=== PATIENT | female | born 1955 | race Caucasian/White ===

== ENCOUNTER 2024-06-28 14:21 | Outpatient (CLI) | payer OTHER | END 2024-06-28 14:22 | disposition home or self-care (01) | LOC: MRI 14:21 | PROVIDERS: ATTEND Registered Nurse | DX: M25.511 Pain in right shoulder (principal); M79.601 Pain in right arm; M75.101 Unspecified rotator cuff tear or rupture of right shoulder, not specified as traumatic; S46.111A Strain of muscle, fascia and tendon of long head of biceps, right arm, initial encounter; M19.011 Primary osteoarthritis, right shoulder; Z91.81 History of falling ==

== ENCOUNTER 2024-07-17 10:52 | Outpatient (CLI) | payer OTHER ==
[2024-07-17 12:20] LABS: #Basophils 0.11 10x3/uL (0.0-0.2); %Basophils 1.5 % (0.0-1.0); %Eosinophils 2.4 % (0.0-10.0); %Lymphocytes 37.6 % (21.0-51.0); %Monocytes 10.8 % (0.0-10.0); %Neutrophils 47.6 % (42.0-75.0); Hematocrit 38.8 % (36.0-47.0); Hemoglobin 13.1 g/dL (12.0-16.0); Mean Corpuscular HGB CONC 33.8 g/dL (32.0-36.0); Mean Corpuscular Hemoglobin 28.2 pg (27.0-31.0); Mean Corpuscular Volume 83.4 fL (78.0-98.0); Mean Platelet Volume 9.4 fL (7.4-10.4); Platelet Count 284 10x3/uL (130-400); RBC Distribution Width 14.1 % (11.5-14.5); Red Blood Cell (RBC) Count 4.65 mill/uL (4.20-5.40)
[2024-07-17 12:45] LABS: Anion Gap 11 mmol/L (10-20); BUN (Urea Nitrogen) 8 mg/dL (9.8-20.1); Calc. Creatinine Clearance 0 mL/min (70-130); Calcium 9.5 mg/dL (7.8-10.44); Carbon Dioxide 28 mmol/L (23-31); Chloride 102 mmol/L (98-107); Estimated GFR 94; Glucose 104 mg/dL (80-115); Potassium 3.6 mmol/L (3.5-5.1); Sodium 137 mmol/L (136-145)
== END 2024-07-17 10:53 | disposition home or self-care (01) ==
LOC: LABBT 10:52
PROVIDERS: ATTEND Student in an Organized Health Care Education/Training Program
DX: Z01.818 Encounter for other preprocedural examination (principal); M75.101 Unspecified rotator cuff tear or rupture of right shoulder, not specified as traumatic
CPT/HCPCS: 80048; 85025; 93005; 93010

== ENCOUNTER 2024-07-20 07:45 | Day surgery (SDC) | payer OTHER ==
[2024-07-17 11:02] VITALS: BMI 31.7
[2024-07-20] MEDS ORDERED: fentaNYL PF 100 MCG/2 ML SYRINGE ONE (08:47)
[2024-07-20] MEDS ORDERED: Midazolam HCl 2 mg/2 ml Vial ONE ×2 (08:47→08:56)
[2024-07-20] MEDS ORDERED: PROPOFOL 20 ML ONE (08:47)
[2024-07-20] MEDS ORDERED: Rocuronium Bromide 10 MG/ML (10ML VIAL) ONE (08:47)
[2024-07-20] MEDS ORDERED: fentaNYL 50 mcg/mL 1 mL Vial ONE (08:56)
[2024-07-20] MEDS ORDERED: Ropivacaine 0.5% HCl/PF (150 MG/30 ML VIAL) ONE (08:56)
[2024-07-20] MEDS ORDERED: Ropivacaine 0.2% HCl/PF 20 ML ONE (08:56)
[2024-07-20] MEDS ORDERED: Lidocaine 1% (PF) 30 ML VIAL ONE (09:15)
[2024-07-20] MEDS ORDERED: Bupivacaine 0.25% HCL 30 ML VIAL ONE (09:15)
[2024-07-20] MEDS ORDERED: EPINEPHrine 1 MG/ML VIAL ONE (09:15)
[2024-07-20] MEDS ORDERED: Tranexamic Acid 1,000 MG/10 ML VIAL ONE (09:18)
[2024-07-20] MEDS ORDERED: Sodium Chloride 0.9% 100 ML ONE (09:19)
[2024-07-20] MEDS ORDERED: CEFAZOLIN 2 GM VIAL ONE (09:39)
[2024-07-20] MEDS ORDERED: PHENYLEPHRINE-NS 100 MCG/ML 10 ML SYRINGE ONE (10:06)
[2024-07-20] MEDS ORDERED: Zolpidem Tartrate 5 MG TAB PO PRN (11:00)
[2024-07-20] MEDS ORDERED: traMADol HCl 50 MG TAB PO PRN ×2 (11:00)
[2024-07-20] MEDS ORDERED: HYDROcodone/Acetaminophen 10/325 mg Tablet PO PRN ×2 (11:00)
[2024-07-20] MEDS ORDERED: Ropivacaine 0.2% 550 ML 550 ML NERVE BLCK SCH (11:00)
[2024-07-20] MEDS ORDERED: Promethazine HCl 25 MG/ML VIAL IM PRN (11:00)
[2024-07-20] MEDS ORDERED: Ondansetron PF 4 MG/2 ML Vial IVP PRN (11:00)
[2024-07-20] MEDS ORDERED: Dexamethasone 20 MG/5 ML VIAL ONE (11:45)
[2024-07-20] MEDS ORDERED: Ondansetron PF 4 MG/2 ML Vial ONE (11:45)
[2024-07-20] MEDS ORDERED: Ketorolac Tromethamine 30 MG (1 mL) VIAL IVP SCH (12:00)
[2024-07-20] MEDS ORDERED: Ketamine In 0.9 % NaCl 50 MG/5 ML SYRINGE ONE (13:17)
[2024-07-20] MEDS ORDERED: CEFAZOLIN 1 GM VIAL ONE (14:22)
[2024-07-20] MEDS ORDERED: SUGAMMADEX SODIUM 200 MG/2 ML VIAL ONE (14:43)
== END 2024-07-20 16:38 | disposition home or self-care (01) ==
LOC: SDC 07:45
PROVIDERS: ATTEND Student in an Organized Health Care Education/Training Program
PROC: 0RNJ4ZZ Release Right Shoulder Joint, Percutaneous Endoscopic Approach (ICD-10-PCS; principal; 2024-07-20)
PROC: 0LM14ZZ Reattachment of Right Shoulder Tendon, Percutaneous Endoscopic Approach (ICD-10-PCS; 2024-07-20)
DX: S46.011A Strain of muscle(s) and tendon(s) of the rotator cuff of right shoulder, initial encounter (principal); M75.41 Impingement syndrome of right shoulder; M19.011 Primary osteoarthritis, right shoulder; I10 Essential (primary) hypertension; E78.5 Hyperlipidemia, unspecified; E11.9 Type 2 diabetes mellitus without complications; K21.9 Gastro-esophageal reflux disease without esophagitis; Z79.84 Long term (current) use of oral hypoglycemic drugs; Z79.899 Other long term (current) drug therapy; X58.XXXA Exposure to other specified factors, initial encounter
CPT/HCPCS: 29826; 29827; A4306; C1713 ×3; J0690; J1100; J2250; J2405; J2704; J2795 ×3; J3010; J3490; Q4125; J0171; J0665

== ENCOUNTER 2025-08-02 12:24 | Outpatient (CLI) | payer OTHER | END 2025-08-02 12:25 | disposition home or self-care (01) | LOC: BICCT 12:24 | PROVIDERS: ATTEND Family Medicine | DX: R51.9 Headache, unspecified (principal); Z91.81 History of falling; Z00.00 Encounter for general adult medical examination without abnormal findings; E11.9 Type 2 diabetes mellitus without complications; I10 Essential (primary) hypertension; E78.5 Hyperlipidemia, unspecified; M85.852 Other specified disorders of bone density and structure, left thigh | CPT/HCPCS: 36415; 70450; 80053; 80061; 82306; 83036; 84443; 85025 ==